=== PATIENT | female | born 1980 | race African-American/Black ===

== ENCOUNTER → 2024-04-11 10:49 | Outpatient (REF) | payer OTHER, SELFPAY ==
[2024-04-11 19:17] LABS: Rubella Positive
[2024-04-11 20:13] LABS: Hepatitis B Surface Antibody Positive
[2024-04-12 13:26] LABS: Mumps Virus IgG Positive; Rubeola (Measles) IgG Positive; Varicella Zoster IgG (VZV) Positive
[2024-04-13 15:12] LABS: Quantiferon Mitogen minus NIL 9.99 IU/mL; Quantiferon NIL 0.01 IU/mL; Quantiferon TB Gold Plus Negative (Negative)
== END ==
LOC: REG 10:49
PROVIDERS: ATTENDING PHYSICIAN Nurse Practitioner Family
DX: Z23 Encounter for immunization (principal)
CPT/HCPCS: 36415; 86480; 86706; 86735; 86762; 86765; 86787